=== PATIENT | female | born 1965 | race Caucasian/White ===

== ENCOUNTER 2020-01-20 14:23 | Emergency (ER) | payer MEDICAID ==
[~2020-01-20] VITALS: Ht 160 cm; Wt 101.4 kg
[2020-01-20 14:25] VITALS: BP 134/85
[2020-01-20] MEDS ORDERED: CEPH250T PO (15:18)
== END 2020-01-20 15:24 | disposition home or self-care (01) ==
LOC: ER 14:24
DX: S60.424A Blister (nonthermal) of right ring finger, initial encounter (principal); L03.011 Cellulitis of right finger; Z88.0 Allergy status to penicillin; Z88.2 Allergy status to sulfonamides; Z88.1 Allergy status to other antibiotic agents; Z79.899 Other long term (current) drug therapy; X58.XXXA Exposure to other specified factors, initial encounter; Y93.89 Activity, other specified; Y92.89 Other specified places as the place of occurrence of the external cause; Y99.8 Other external cause status
CPT/HCPCS: 99284

== ENCOUNTER 2020-02-18 15:12 | Emergency (ER) | payer MEDICAID ==
[~2020-02-18] VITALS: Ht 160 cm; Wt 93.6 kg
[2020-02-18 16:02] LABS: BASOPHILS # (AUTO) 0.1 X10'3 (0-0.2); BASOPHILS % (AUTO) 0.6 % (0-1); EOSINOPHILS # (AUTO) 0.1 X10'3 (0-0.9); HEMATOCRIT 30.7 % (35.0-45.0); HEMOGLOBIN 9.5 g/dl (12.0-16.0); LYMPHOCYTES # (AUTO) 1.5 X10'3 (1.1-4.8); LYMPHOCYTES % (AUTO) 11.2 % (21-51); MEAN CORPUSCULAR HEMOGLOBIN 23.7 PG (27.0-31.0); MEAN CORPUSCULAR HGB CONC 30.9 g/dL (33.0-36.5); MEAN CORPUSCULAR VOLUME 76.8 FL (78-98); MEAN PLATELET VOLUME 7.3 FL (7.4-10.4); MONOCYTES # (AUTO) 0.6 X10'3 (0-0.9); MONOCYTES % (AUTO) 4.6 % (2-12); NEUTROPHILS # (AUTO) 11.2 X10'3 (1.8-7.7); NEUTROPHILS % (AUTO) 82.6 % (42-75); PLATELET COUNT 742 X10'3 (140-440); RED CELL DISTRIBUTION WIDTH 18.7 % (11.5-14.5); WHITE BLOOD COUNT 13.5 X10'3 (4.5-11.0)
[2020-02-18 16:24] LABS: ALANINE AMINOTRANSFERASE 11 U/L (12-78); ALBUMIN/GLOBULIN RATIO 0.5 (1.1-1.5); ALKALINE PHOSPHATASE 82 IU/L (46-116); ANION GAP 19 (8-16); ASPARTATE AMINO TRANSFERASE 19 U/L (10-37); BILIRUBIN,TOTAL 0.3 MG/DL (0.1-1.0); BLOOD UREA NITROGEN 32 MG/DL (7-18); BUN/CREATININE RATIO 26.9 (6.6-38.0); CHLORIDE 97 MMOL/L (99-107); CREATININE 1.19 MG/DL (0.40-0.90); GLUCOSE 258 MG/DL (70-104); POTASSIUM 3.8 MMOL/L (3.5-5.1); SODIUM 135 MMOL/L (135-145); TOTAL CARBON DIOXIDE 19.1 MMOL/L (24-32); TOTAL PROTEIN 9.4 G/DL (6.4-8.2); eGFR 47 ML/MIN
[2020-02-18 16:26] LABS: ANISOCYTOSIS 2+; MICROCYTOSIS 1+; PLATELET ESTIMATE INCREASED; TOTAL CELLS COUNTED 100
[2020-02-18 16:28] LABS: CALCIUM 12.2 MG/DL (8.5-10.1)
[2020-02-18] MEDS ORDERED: normal saline 1000ml 1,000 ML IV ONE (16:50)
[2020-02-18] MEDS ORDERED: ketorolac tromethamine 15mg/ml inj. IV ONE (17:10)
[2020-02-18] MEDS ORDERED: ondansetron/PF 4mg/2ml inj IV ONE (17:10)
[2020-02-18 17:33] VITALS: BP 154/69
== END 2020-02-18 18:12 | disposition home or self-care (01) ==
LOC: ER 15:12
DX: E83.52 Hypercalcemia (principal); R07.81 Pleurodynia; R11.0 Nausea; K59.00 Constipation, unspecified; Z88.0 Allergy status to penicillin; Z88.2 Allergy status to sulfonamides; Z79.2 Long term (current) use of antibiotics
CPT/HCPCS: 36415; 71045; 80053; 83880; 84484; 85007; 85025; 93005; 96361; 96374; 96375; 99285; J1885; J2405; J7030

== ENCOUNTER 2020-02-25 12:52 | Inpatient (IN) | payer MEDICAID ==
[~2020-02-25] VITALS: Ht 175.3 cm; Wt 104.5 kg
[2020-02-25 14:09] LABS: CLARITY,URINE SLIGHTLY CLOUDY (Clear); COLOR,URINE YELLOW (Yellow); GLUCOSE, URINE >=1000 mg/dl (Neg); KETONES,URINE 40 mg/dl (Neg); LEUKOCYTE ESTERASE ,URINE NEGATIVE (Neg); NITRITES, URINE NEGATIVE (Neg); OCCULT BLOOD,URINE MODERATE (Neg); PH,URINE 5.5 (4.8-8.0); PROTEIN,URINE 30 mg/dl (Neg); UROBILINOGEN,URINE 0.2 E.U/dL (0.2-1.0)
[2020-02-25 14:10] LABS: EOSINOPHILS % (AUTO) 0 % (0-6); HEMOGLOBIN 10.2 g/dl (12.0-16.0); MONOCYTES # (AUTO) 1.1 X10'3 (0-0.9); MONOCYTES % (AUTO) 7.4 % (2-12)
[2020-02-25 14:12] LABS: BASOPHILS % (AUTO) 0.3 % (0-1); LYMPHOCYTES # (AUTO) 0.4 X10'3 (1.1-4.8); LYMPHOCYTES % (AUTO) 2.6 % (21-51); MEAN CORPUSCULAR HEMOGLOBIN 23.5 PG (27.0-31.0); MEAN PLATELET VOLUME 7.7 FL (7.4-10.4); NEUTROPHILS % (AUTO) 89.7 % (42-75); PLATELET COUNT 760 X10'3 (140-440); RED BLOOD COUNT 4.36 X10'6 (4.20-5.60); WHITE BLOOD COUNT 14.5 X10'3 (4.5-11.0)
[2020-02-25 14:23] LABS: UA COLLECTION TYPE CLN CATCH MIDSTREAM
[2020-02-25 14:26] LABS: BACTERIA,URINE FEW /HPF (Neg); MUCUS STRANDS NONE SEEN /LPF (Neg); RBC,URINE 0-2 /HPF (0-2); SQUAMOUS EPITHELIAL CELL,UR MODERATE /LPF (FEW); YEAST FEW /HPF (NEGATIVE)
[2020-02-25 14:27] LABS: WBC CLUMPS,URINE FEW /HPF (NEGATIVE)
[2020-02-25 14:28] LABS: ALANINE AMINOTRANSFERASE 13 U/L (12-78); ALBUMIN 2.8 G/DL (3.4-5.0); ALBUMIN/GLOBULIN RATIO 0.5 (1.1-1.5); ALKALINE PHOSPHATASE 101 IU/L (46-116); ANION GAP 27 (8-16); ASPARTATE AMINO TRANSFERASE 9 U/L (10-37); BILIRUBIN,TOTAL 0.4 MG/DL (0.1-1.0); BLOOD UREA NITROGEN 54 MG/DL (7-18); BUN/CREATININE RATIO 27.8 (6.6-38.0); CALCIUM 11.8 MG/DL (8.5-10.1); CHLORIDE 108 MMOL/L (99-107); CREATININE 1.94 MG/DL (0.40-0.90); SODIUM 144 MMOL/L (135-145); TOTAL PROTEIN 8.9 G/DL (6.4-8.2); eGFR 27 ML/MIN
[2020-02-25 14:32] LABS: GLUCOSE 660 MG/DL (70-104); POTASSIUM 2.6 MMOL/L (3.5-5.1); TOTAL CARBON DIOXIDE 8.8 MMOL/L (24-32)
[2020-02-25 14:38] LABS: MEAN CORPUSCULAR VOLUME 75.1 FL (78-98)
[2020-02-25 14:40] LABS: MEAN CORPUSCULAR HGB CONC 32.8 g/dL (33.0-36.5)
[2020-02-25 14:41] LABS: HEMATOCRIT 32.2 % (35.0-45.0)
[2020-02-25] MEDS ORDERED: normal saline 1000ML IV soln IVB ONE (14:45)
[2020-02-25] MEDS ORDERED: insulin regular, human U-100 3ml vial - multi-dose IV ONE (14:45)
[2020-02-25] MEDS ORDERED: potassium 10mEq/100ml NS w/LIDOcaine (10mg/bag) IV SCH (14:45)
[2020-02-25 15:00] LABS: ABG BASE EXCESS -18.2 mmol/L (-2.0-2.0); ABG HCO3 7.3 mmol/L (22.0-26.0); ABG OXYGEN SATURATION 97.7 % (94-97); ABG PCO2 (T) 18.1 mmHg (32.0-45.0); ALLEN'S TEST POSITIVE; FCOHb 1.1 % (0.0-3.9); FMetHb 0.3 % (0.0-1.5); FO2Hb 96.3 % (94-97); TOTAL HEMOGLOBIN 11.2 G/dl (12.0-16.0)
[2020-02-25] MEDS ORDERED: potassium Cl 10 mEq/100mL bag IV SCH (15:03)
[2020-02-25] MEDS: Insulin Reg/NS 100units/100mL 100 ML IV PRN ×2 (15:12→16:32)
[2020-02-25] MEDS ORDERED: potassium Cl 10 mEq/100mL bag IV ONE ×2 (16:22→16:25)
[2020-02-25] MEDS ORDERED: GLIM1TAB6 PO (16:28)
[2020-02-25] MEDS ORDERED: ERTU15TA PO (16:28)
[2020-02-25] MEDS ORDERED: METF-900 PO (16:28)
[2020-02-25] MEDS ORDERED: DICL100T85 PO (16:28)
[2020-02-25] MEDS ORDERED: PIOG30TA71 PO (16:28)
[2020-02-25] MEDS ORDERED: TOLT2TAB2 PO (16:28)
[2020-02-25] MEDS ORDERED: sodium bicarbonate (8.4%) inj. 100 MEQ in dextrose 5% water 500ml 500 ML IV PRN (16:29)
[2020-02-25] MEDS ORDERED: potassium CL 20mEq in D5-1/2NS 1,000 ML IV PRN (16:29)
[2020-02-25] MEDS ORDERED: sodium bicarbonate (8.4%) inj. 50 MEQ in dextrose 5% water 500ml 250 ML IV PRN (16:29)
[2020-02-25] MEDS ORDERED: magnesium 2GM in 50ml NS 50 ML IV PRN (16:30)
[2020-02-25] MEDS ORDERED: magnesium Cl slow-release 64mg tablet PO PRN (16:30)
[2020-02-25] MEDS ORDERED: Neutra Phos packet PO PRN (16:30)
[2020-02-25] MEDS ORDERED: magnesium 4gm in 100ml NS 100 ML IV PRN (16:30)
[2020-02-25] MEDS ORDERED: acetaminophen 325mg tablet PO PRN ×2 (16:30)
[2020-02-25] MEDS ORDERED: potassium CL 10mEq/100ml bag 100 ML IV PRN ×3 (16:30)
[2020-02-25] MEDS ORDERED: sodium phosphate inj. 15 MMOL in dextrose 5%-water 250 ML IV PRN (16:30)
[2020-02-25] MEDS ORDERED: potassium Cl 20 mEq SR tablet PO PRN ×3 (16:30)
[2020-02-25] MEDS ORDERED: morphine 2 MG/ML inj. syringe IV PRN (16:30)
[2020-02-25] MEDS ORDERED: sodium phosphate inj. 30 MMOL in dextrose 5%-water 250 ML IV PRN (16:30)
[2020-02-25] MEDS ORDERED: ondansetron/PF 4mg/2ml inj IV PRN (16:30)
[2020-02-25] MEDS ORDERED: insulin regular, human U-100 3ml vial - multi-dose IV PRN (16:30)
[2020-02-25] MEDS: Insulin Reg/NS 100units/100mL 100 ML IV SCH (16:32)
--- NOTE | 2020-02-25 16:34 | NUR ---
PT BS 398, INSULIN DRIP TITRATED TO 5UNITS/H
[2020-02-25 16:35] LABS: TROPONIN I 0.12 NG/ML (0.0-0.05)
[2020-02-25 16:48] LABS: ANISOCYTOSIS 2+; MICROCYTOSIS 1+; PLATELET ESTIMATE INCREASED; TOTAL CELLS COUNTED 100
[2020-02-25 16:52] LABS: BURR CELLS FEW; SCHISTOCYTES FEW
[2020-02-25] MEDS: normal saline 1000ml 1,000 ML IV SCH ×2 (17:03→20:29)
[2020-02-25] MEDS: pantoprazole 40 MG vial IV SCH (17:57)
[2020-02-25 19:09] LABS: ALBUMIN 2.6 G/DL (3.4-5.0); ANION GAP 19 (8-16); BLOOD UREA NITROGEN 50 MG/DL (7-18); BUN/CREATININE RATIO 32.1 (6.6-38.0); CALCIUM 11.5 MG/DL (8.5-10.1); CHLORIDE 115 MMOL/L (99-107); CREATININE 1.56 MG/DL (0.40-0.90); GLUCOSE 373 MG/DL (70-104); SODIUM 149 MMOL/L (135-145); TOTAL CARBON DIOXIDE 15.3 MMOL/L (24-32); eGFR 34 ML/MIN
[2020-02-25 19:13] LABS: POTASSIUM 2.2 MMOL/L (3.5-5.1)
[2020-02-25 19:14] LABS: PHOSPHORUS 0.7 MG/DL (2.3-4.5)
--- NOTE | 2020-02-25 19:26 | NUR ---
I REPORTED TO DR ORR , K 2.2. TN DR ORR STOP THE INSULIN AND START THE POTASSIUM PROTOCOL. INSULIN HAS BEEN STOPPED.
[2020-02-25] MEDS ORDERED: POTASSIUM CL IV ONE ×3 (19:55→23:59)
[2020-02-25] MEDS ORDERED: [UNRECOGNIZED DRUG - OTHER] IV ONE ×2 (19:55→23:59)
[2020-02-25] MEDS ORDERED: K and/or MAG REPLACEMENT MC SCH (20:00)
[2020-02-25] MEDS: K and/or MAG REPLACEMENT MC SCH (20:00)
[2020-02-25] MEDS: sodium chloride 0.45% 1,000 ML IV SCH (20:02)
[2020-02-25] MEDS ORDERED: [UNRECOGNIZED DRUG - OTHER] IV ONE (20:10)
--- NOTE | 2020-02-25 20:25 | NUR ---
received report from [facility], pt received a total of 2.5L NS for rehydration, ER MD started pt on 7 units/hr of insulin with 2 K riders with a starting K of 2.6, pt K then dropped to 2.2 before insulin was stopped. pt will arrive to floor with no fluids running and in need of K replacement. will follow protocol for rehydration and K replacemen when pt arrives to the floor.
[2020-02-25] MEDS: heparin, porcine 5000 units/ml vial SQ SCH (20:28)
--- NOTE | 2020-02-25 20:35 | NUR ---
pt arrived to the floor with all belongings, pt is very tired/weak with stable VS, pt orriented to floor as able to. pt transfered to bed and tele attached.
[2020-02-25 20:40] VITALS: BP 140/84
[2020-02-25] MEDS ORDERED: temazepam 15mg capsule PO PRN (21:00)
[2020-02-25 22:00] VITALS: BP 151/81
[2020-02-26] MEDS: sodium chloride 0.45% 1,000 ML IV SCH ×5 (00:06→15:31)
[2020-02-26] MEDS ORDERED: [UNRECOGNIZED DRUG - OTHER] IV ONE ×2 (00:10→21:55)
[2020-02-26] MEDS ORDERED: POTASSIUM CL IV ONE ×2 (00:10→21:55)
[2020-02-26] MEDS: normal saline 1000ml 1,000 ML IV SCH ×5 (00:29→16:29)
[2020-02-26 02:00] VITALS: BP 141/75
--- NOTE | 2020-02-26 03:29 | NUR ---
unable to DART pt at this time, pt is too tired to answer questions.
[2020-02-26 05:50] LABS: BASOPHILS # (AUTO) 0.1 X10'3 (0-0.2); BASOPHILS % (AUTO) 0.5 % (0-1); EOSINOPHILS % (AUTO) 0.2 % (0-6); HEMATOCRIT 30.1 % (35.0-45.0); HEMOGLOBIN 9.3 g/dl (12.0-16.0); LYMPHOCYTES # (AUTO) 0.7 X10'3 (1.1-4.8); LYMPHOCYTES % (AUTO) 5.6 % (21-51); MEAN CORPUSCULAR HEMOGLOBIN 23.7 PG (27.0-31.0); MEAN CORPUSCULAR HGB CONC 30.8 g/dL (33.0-36.5); MEAN CORPUSCULAR VOLUME 76.9 FL (78-98); MEAN PLATELET VOLUME 7.5 FL (7.4-10.4); MONOCYTES # (AUTO) 0.7 X10'3 (0-0.9); MONOCYTES % (AUTO) 5.3 % (2-12); NEUTROPHILS # (AUTO) 11.7 X10'3 (1.8-7.7); NEUTROPHILS % (AUTO) 88.4 % (42-75); PLATELET COUNT 593 X10'3 (140-440); RED BLOOD COUNT 3.92 X10'6 (4.20-5.60); RED CELL DISTRIBUTION WIDTH 18.5 % (11.5-14.5); WHITE BLOOD COUNT 13.2 X10'3 (4.5-11.0)
--- NOTE | 2020-02-26 06:02 | NUR ---
Problems reprioritized. Patient report given, questions answered & plan of care reviewed with Jocelyn Henley RN.
--- NOTE | 2020-02-26 06:10 | NUR ---
Patient in room PCU 3016. I have received report from OSMAN Valentin and had the opportunity to ask questions and assume patient care. Patient asleep in bed, hourly blood sugar checked, 1/2NS running at 250mL/hr, and in no acute distress.
[2020-02-26 06:23] LABS: ALANINE AMINOTRANSFERASE 12 U/L (12-78); ALBUMIN 2.4 G/DL (3.4-5.0); ALBUMIN/GLOBULIN RATIO 0.4 (1.1-1.5); ALKALINE PHOSPHATASE 81 IU/L (46-116); ANION GAP 19 (8-16); ASPARTATE AMINO TRANSFERASE 10 U/L (10-37); BILIRUBIN,TOTAL 0.3 MG/DL (0.1-1.0); BLOOD UREA NITROGEN 41 MG/DL (7-18); BUN/CREATININE RATIO 33.6 (6.6-38.0); CALCIUM 10.8 MG/DL (8.5-10.1); CHLORIDE 118 MMOL/L (99-107); CREATININE 1.22 MG/DL (0.40-0.90); GLUCOSE 280 MG/DL (70-104); MAGNESIUM 1.7 MG/DL (1.5-2.4); SODIUM 150 MMOL/L (135-145); TOTAL PROTEIN 8.2 G/DL (6.4-8.2); eGFR 46 ML/MIN
[2020-02-26 06:29] LABS: PHOSPHORUS 1.1 MG/DL (2.3-4.5); POTASSIUM 2.8 MMOL/L (3.5-5.1); TOTAL CARBON DIOXIDE 13.1 MMOL/L (24-32)
--- NOTE | 2020-02-26 06:31 | NUR ---
Paged Dr. Mims regarding critical lab values. PAGER ID: [phone] MESSAGE: [id number]. Jacy Helm. Critical lab values K 2.8, CO2 13.1, and phos 1.1. Thank you. Jocelyn BREWER x [phone]
[2020-02-26 07:00] VITALS: BP 138/72
[2020-02-26] MEDS ORDERED: sodium phosphate inj. 15 MMOL in dextrose 5%-water 250 ML IV PRN (07:00)
[2020-02-26] MEDS: pantoprazole 40 MG vial IV SCH (07:20)
[2020-02-26] MEDS: potassium CL 10mEq/100ml bag 100 ML IV PRN ×7 (07:21→17:11)
[2020-02-26] MEDS: heparin, porcine 5000 units/ml vial SQ SCH ×2 (07:44→19:35)
[2020-02-26] MEDS: sodium phosphate inj. 30 MMOL in dextrose 5%-water 250 ML IV PRN (07:45)
[2020-02-26] MEDS: K and/or MAG REPLACEMENT MC SCH ×2 (07:53→20:00)
--- NOTE | 2020-02-26 08:01 | NUR ---
Paged Dr. Solis regarding critical results and the fluids that are going. PAGER ID: [phone] MESSAGE: [id number]. Jacy Helm. Critical results of K 2.8, phos 1.1, and CO2 13.1. Insulin gtt off, 1/2NS running at 250mL/hr. Thank you. Jocelyn BREWER x [phone]
[2020-02-26] MEDS ORDERED: potassium Cl 20 mEq SR tablet PO STA (08:59)
[2020-02-26 11:00] VITALS: BP 147/77
[2020-02-26] MEDS: Insulin Reg/NS 100units/100mL 100 ML IV SCH (12:29)
[2020-02-26 12:30] LABS: ALBUMIN 2.5 G/DL (3.4-5.0); ANION GAP 20 (8-16); BLOOD UREA NITROGEN 37 MG/DL (7-18); BUN/CREATININE RATIO 30.8 (6.6-38.0); CALCIUM 10.6 MG/DL (8.5-10.1); CHLORIDE 115 MMOL/L (99-107); GLUCOSE 261 MG/DL (70-104); PHOSPHORUS 2.1 MG/DL (2.3-4.5); SODIUM 149 MMOL/L (135-145); eGFR 47 ML/MIN
[2020-02-26 12:44] LABS: POTASSIUM 2.7 MMOL/L (3.5-5.1)
[2020-02-26 12:45] LABS: TOTAL CARBON DIOXIDE 14.3 MMOL/L (24-32)
--- NOTE | 2020-02-26 12:45 | NUR ---
paged Dr. Solis regarding critical results. PAGER ID: [phone] MESSAGE: [id number]. Jacy Helm. Critical results of K 2.7, and CO2 14.3. Thank you. Jocelyn BREWER x [phone]
--- NOTE | 2020-02-26 13:19 | NUR ---
Paged Dr. Solis regarding Hgb A1C. PAGER ID: [phone] MESSAGE: [id number]. Jacy Helm. patient does not have a hgb A1C ordered. May I order one? Thank you. Jocelyn BREWER x [phone] Addendum: 02/26/20 at 1320 by Jocelyn Rios RN Dr. Solis called back and said to order.
--- NOTE | 2020-02-26 13:24 | NUR ---
Orders for Hgb A1C put in per Dr. Solis. Orders for BMP to be drawn q4 hours put in per Dr. Solis as well.
--- NOTE | 2020-02-26 14:32 | NUR ---
Patient with h/o type 2 DM admitted with elevated BG up to 594 mg/dl, admitted lethargic and non verbal. Per H&P takes actos, glimepiride, and metformin, reports decreased appetite, n/v. Admitted with DKA and uncontrolled DM. A1c is pending. Will need written DM education handout with verbal review when A1c results are obtained. Recommend: 1. advance diet as medically indicated to carb controlled 2. weight per rx Addendum: 02/26/20 at [address] Amended: Links added.
[2020-02-26 15:00] VITALS: BP 133/62
[2020-02-26 16:12] LABS: ALBUMIN 2.1 G/DL (3.4-5.0); ANION GAP 15 (8-16); BLOOD UREA NITROGEN 33 MG/DL (7-18); CALCIUM 9.9 MG/DL (8.5-10.1); CHLORIDE 115 MMOL/L (99-107); CREATININE 1.03 MG/DL (0.40-0.90); GLUCOSE 216 MG/DL (70-104); SODIUM 145 MMOL/L (135-145); TOTAL CARBON DIOXIDE 15.1 MMOL/L (24-32); eGFR 56 ML/MIN
[2020-02-26 16:14] LABS: POTASSIUM 3.3 MMOL/L (3.5-5.1)
[2020-02-26 18:00] VITALS: BP 133/68
--- NOTE | 2020-02-26 18:12 | NUR ---
Problems reprioritized. Patient report given, questions answered & plan of care reviewed with Homero RN. Patient stable at transfer of care.
--- NOTE | 2020-02-26 18:30 | NUR ---
Patient in room PCU 3016. I have received report from Jocelyn Henley RN and had the opportunity to ask questions and assume patient care.
[2020-02-26] MEDS: potassium CL 20mEq in D5-1/2NS 1,000 ML IV SCH (19:35)
[2020-02-26 21:34] LABS: ANION GAP 17 (8-16); BLOOD UREA NITROGEN 28 MG/DL (7-18); BUN/CREATININE RATIO 27.2 (6.6-38.0); CALCIUM 9.7 MG/DL (8.5-10.1); CHLORIDE 114 MMOL/L (99-107); CREATININE 1.03 MG/DL (0.40-0.90); GLUCOSE 218 MG/DL (70-104); SODIUM 146 MMOL/L (135-145); eGFR 56 ML/MIN
[2020-02-26 21:37] LABS: POTASSIUM 2.9 MMOL/L (3.5-5.1)
[2020-02-26 22:00] VITALS: BP 134/65
[2020-02-26 22:09] LABS: MAGNESIUM 1.3 MG/DL (1.5-2.4)
[2020-02-27 02:00] VITALS: BP 126/63
[2020-02-27] MEDS ORDERED: [UNRECOGNIZED DRUG - OTHER] IV ONE (03:00)
[2020-02-27] MEDS ORDERED: POTASSIUM CL IV ONE (03:00)
[2020-02-27] MEDS: potassium CL 20mEq in D5-1/2NS 1,000 ML IV SCH (05:25)
[2020-02-27 06:00] VITALS: BP 126/63
[2020-02-27 06:12] LABS: BASOPHILS # (AUTO) 0.1 X10'3 (0-0.2); BASOPHILS % (AUTO) 0.8 % (0-1); EOSINOPHILS # (AUTO) 0.1 X10'3 (0-0.9); EOSINOPHILS % (AUTO) 1.4 % (0-6); HEMATOCRIT 27.6 % (35.0-45.0); HEMOGLOBIN 8.7 g/dl (12.0-16.0); LYMPHOCYTES # (AUTO) 1.6 X10'3 (1.1-4.8); LYMPHOCYTES % (AUTO) 16.5 % (21-51); MEAN CORPUSCULAR HEMOGLOBIN 23.9 PG (27.0-31.0); MEAN CORPUSCULAR HGB CONC 31.5 g/dL (33.0-36.5); MEAN CORPUSCULAR VOLUME 75.8 FL (78-98); MEAN PLATELET VOLUME 7.3 FL (7.4-10.4); MONOCYTES # (AUTO) 0.7 X10'3 (0-0.9); MONOCYTES % (AUTO) 6.9 % (2-12); NEUTROPHILS # (AUTO) 7.1 X10'3 (1.8-7.7); NEUTROPHILS % (AUTO) 74.4 % (42-75); PLATELET COUNT 482 X10'3 (140-440); RED BLOOD COUNT 3.64 X10'6 (4.20-5.60); RED CELL DISTRIBUTION WIDTH 18.4 % (11.5-14.5); WHITE BLOOD COUNT 9.5 X10'3 (4.5-11.0)
--- NOTE | 2020-02-27 06:21 | NUR ---
Problems reprioritized. Patient report given, questions answered & plan of care reviewed with Layla BREWER.
--- NOTE | 2020-02-27 06:29 | NUR ---
Patient in room PCU 3016. I have received report from Otoniel BREWER and had the opportunity to ask questions and assume patient care.
[2020-02-27] MEDS: pantoprazole 40 MG vial IV SCH (07:32)
[2020-02-27] MEDS: heparin, porcine 5000 units/ml vial SQ SCH ×2 (07:32→19:18)
[2020-02-27 07:33] LABS: ALANINE AMINOTRANSFERASE 16 U/L (12-78); ALBUMIN/GLOBULIN RATIO 0.4 (1.1-1.5); ALKALINE PHOSPHATASE 73 IU/L (46-116); ANION GAP 15 (8-16); ASPARTATE AMINO TRANSFERASE 21 U/L (10-37); BILIRUBIN,TOTAL 0.4 MG/DL (0.1-1.0); BLOOD UREA NITROGEN 23 MG/DL (7-18); BUN/CREATININE RATIO 24.7 (6.6-38.0); CALCIUM 9.8 MG/DL (8.5-10.1); CHLORIDE 113 MMOL/L (99-107); CREATININE 0.93 MG/DL (0.40-0.90); GLUCOSE 262 MG/DL (70-104); MAGNESIUM 2.7 MG/DL (1.5-2.4); POTASSIUM 3.2 MMOL/L (3.5-5.1); SODIUM 144 MMOL/L (135-145); TOTAL CARBON DIOXIDE 15.8 MMOL/L (24-32); TOTAL PROTEIN 6.6 G/DL (6.4-8.2); eGFR 63 ML/MIN
[2020-02-27 07:36] LABS: PHOSPHORUS 0.8 MG/DL (2.3-4.5)
[2020-02-27] MEDS: potassium CL 10mEq/100ml bag 100 ML IV PRN ×4 (07:58→11:29)
[2020-02-27] MEDS: K and/or MAG REPLACEMENT MC SCH ×2 (08:00→20:00)
--- NOTE | 2020-02-27 08:27 | NUR ---
PAGER ID: [phone] MESSAGE: [phone] JACEY. [employer]+ 3.2, PHOS 0.8. WE ARE REPLACING NOW. KOJO PATRICIO
[2020-02-27] MEDS: sodium phosphate inj. 30 MMOL in dextrose 5%-water 250 ML IV PRN (08:40)
[2020-02-27 10:20] LABS: ABG BASE EXCESS -8.7 mmol/L (-2.0-2.0); ABG HCO3 15.2 mmol/L (22.0-26.0); ABG OXYGEN SATURATION 96.9 % (94-97); ABG PCO2 (T) 26.1 mmHg (32.0-45.0); ABG PO2 (T) 88.3 mmHg (75.0-100.0); ALLEN'S TEST POSITIVE; FCOHb 0.8 % (0.0-3.9); FMetHb 0.3 % (0.0-1.5); FO2Hb 95.8 % (94-97)
--- NOTE | 2020-02-27 10:24 | NUR ---
PAGER ID: [phone] MESSAGE: [id number] Jacy Helm: ABG results in CO2 is 26.1, do you want to stop dka protocols, and start hyperglycemia protocols and do blood glucose ACHS? thanks akhil [phone]
--- NOTE | 2020-02-27 10:26 | NUR ---
F/u: Patient's A1c is 13.0%. Pt documented as A/O x 2, DM education deferred at this time. Will continue to follow closely. Addendum: 02/27/20 at [address] Amended: Links added.
[2020-02-27] MEDS ORDERED: MESSAGE TO PHARMACY PO ONE (10:30)
[2020-02-27] MEDS ORDERED: dextrose ORAL solution 15 GM/59 ML bottle PO PRN ×2 (10:30)
[2020-02-27] MEDS ORDERED: glucagon, human recombinant 1mg kit SUBCUT PRN (10:30)
[2020-02-27] MEDS ORDERED: dextrose 50%-water 50ml dispensing syringe IV PRN ×2 (10:30)
--- NOTE | 2020-02-27 10:33 | NUR ---
received orders to stop insulin drip and start patient on hyperglycemia protocol, give 8 units of insulin and start pt with clear liquid cc diet, accuchecks q2h per dr. quijano.
[2020-02-27 11:00] VITALS: BP 128/67
[2020-02-27] MEDS ORDERED: insulin Lispro (HumaLOG) vial - multi-dose SQ ONE (12:00)
--- NOTE | 2020-02-27 14:17 | NUR ---
PAGER ID: [phone] MESSAGE: [id number] Jacy Helm: ANNIE Pt blood glucose is 344, pt received 8units insulin at 1200, this reading is after pt ate lunch, will check blood glucose again at 1600 and will let you know results. thanks akhil
[2020-02-27 15:00] VITALS: BP 119/68
[2020-02-27] MEDS: sodium chloride 0.45% 1,000 ML IV SCH (15:38)
[2020-02-27 16:25] LABS: PHOSPHORUS 2.1 MG/DL (2.3-4.5); POTASSIUM 3.2 MMOL/L (3.5-5.1)
[2020-02-27] MEDS: insulin Lispro (HumaLOG) vial - multi-dose SQ SCH ×2 (17:03→21:21)
[2020-02-27 18:00] VITALS: BP 129/63
--- NOTE | 2020-02-27 18:28 | NUR ---
Problems reprioritized. Patient report given, questions answered & plan of care reviewed with Homero RN.
--- NOTE | 2020-02-27 18:30 | NUR ---
Patient in room PCU 3016. I have received report from Layla BREWER and had the opportunity to ask questions and assume patient care.
[2020-02-27] MEDS: Neutra Phos packet PO PRN (19:17)
[2020-02-27] MEDS: potassium Cl 20 mEq SR tablet PO PRN ×2 (19:17→23:12)
[2020-02-27] MEDS ORDERED: insulin glargine (Lantus) pen - multi-dose SQ SCH (21:00)
[2020-02-27 22:00] VITALS: BP 130/65
[2020-02-27] MEDS: HYDROcodone/acetaminophen 5mg/325mg tablet PO PRN (23:12)
[2020-02-28] MEDS: sodium chloride 0.45% 1,000 ML IV SCH ×2 (01:48→10:51)
[2020-02-28 02:00] VITALS: BP 130/55
[2020-02-28 06:00] VITALS: BP 111/71
[2020-02-28 06:25] LABS: BASOPHILS # (AUTO) 0.1 X10'3 (0-0.2); BASOPHILS % (AUTO) 0.6 % (0-1); EOSINOPHILS # (AUTO) 0.2 X10'3 (0-0.9); HEMATOCRIT 26.7 % (35.0-45.0); HEMOGLOBIN 8.5 g/dl (12.0-16.0); LYMPHOCYTES # (AUTO) 2.5 X10'3 (1.1-4.8); LYMPHOCYTES % (AUTO) 29.1 % (21-51); MEAN CORPUSCULAR HEMOGLOBIN 23.7 PG (27.0-31.0); MEAN CORPUSCULAR HGB CONC 31.6 g/dL (33.0-36.5); MEAN CORPUSCULAR VOLUME 74.8 FL (78-98); MEAN PLATELET VOLUME 7.5 FL (7.4-10.4); MONOCYTES # (AUTO) 0.7 X10'3 (0-0.9); MONOCYTES % (AUTO) 7.7 % (2-12); NEUTROPHILS # (AUTO) 5.3 X10'3 (1.8-7.7); NEUTROPHILS % (AUTO) 60.6 % (42-75); PLATELET COUNT 427 X10'3 (140-440); RED BLOOD COUNT 3.58 X10'6 (4.20-5.60); RED CELL DISTRIBUTION WIDTH 18.4 % (11.5-14.5); WHITE BLOOD COUNT 8.7 X10'3 (4.5-11.0)
--- NOTE | 2020-02-28 06:33 | NUR ---
Problems reprioritized. Patient report given, questions answered & plan of care reviewed with Edilberto BREWER.
[2020-02-28 06:45] LABS: ALANINE AMINOTRANSFERASE 21 U/L (12-78); ALBUMIN 2.1 G/DL (3.4-5.0); ALBUMIN/GLOBULIN RATIO 0.5 (1.1-1.5); ALKALINE PHOSPHATASE 80 IU/L (46-116); ANION GAP 10 (8-16); ASPARTATE AMINO TRANSFERASE 18 U/L (10-37); BILIRUBIN,TOTAL 0.4 MG/DL (0.1-1.0); BLOOD UREA NITROGEN 13 MG/DL (7-18); BUN/CREATININE RATIO 17.8 (6.6-38.0); CALCIUM 9.5 MG/DL (8.5-10.1); CHLORIDE 108 MMOL/L (99-107); CREATININE 0.73 MG/DL (0.40-0.90); GLUCOSE 167 MG/DL (70-104); MAGNESIUM 1.7 MG/DL (1.5-2.4); SODIUM 140 MMOL/L (135-145); TOTAL CARBON DIOXIDE 22.3 MMOL/L (24-32); TOTAL PROTEIN 6.5 G/DL (6.4-8.2); eGFR 83 ML/MIN
--- NOTE | 2020-02-28 07:11 | NUR ---
Patient in room PCU 3016. I have received report from SPENCER RN and had the opportunity to ask questions and assume patient care.
[2020-02-28 07:50] LABS: TOTAL CELLS COUNTED 100
[2020-02-28 07:52] LABS: PLATELET ESTIMATE NORMAL; POLYCHROMASIA FEW
[2020-02-28] MEDS: K and/or MAG REPLACEMENT MC SCH (08:00)
[2020-02-28] MEDS: heparin, porcine 5000 units/ml vial SQ SCH (08:16)
[2020-02-28] MEDS: pantoprazole 40 MG vial IV SCH (08:16)
[2020-02-28] MEDS: insulin Lispro (HumaLOG) vial - multi-dose SQ SCH ×2 (08:35→13:39)
[2020-02-28] MEDS ORDERED: potassium Cl 20 mEq SR tablet PO STA (09:52)
[2020-02-28 11:00] VITALS: BP 123/74
[2020-02-28] MEDS: HYDROcodone/acetaminophen 5mg/325mg tablet PO PRN (13:40)
[2020-02-28 13:41] LABS: POTASSIUM 3.9 MMOL/L (3.5-5.1)
[2020-02-28 13:59] LABS: MAGNESIUM 1.5 MG/DL (1.5-2.4); PHOSPHORUS 1.5 MG/DL (2.3-4.5)
[2020-02-28] MEDS: Neutra Phos packet PO PRN (14:13)
--- NOTE | 2020-02-28 14:15 | NUR ---
Informed Dr. Solis of new lab values K 3.9 Mg 1.5, and low phos of 1.5. Informed Dr. Solis replacing with neutro-phos packet. Informed Dr. Solis that when walking with PT, HR went to 149 with only walking to bathroom, 121 at rest. MD aware. No new orders at this time.
[2020-02-28] MEDS ORDERED: INSU100V9 SQ (14:31)
[2020-02-28] MEDS ORDERED: PHOS250T2 PO (14:34)
[2020-02-28 15:00] VITALS: BP 118/72
--- NOTE | 2020-02-28 16:00 | NUR ---
Patient in room PCU 3016. I have received report from [facility] and had the opportunity to ask questions and assume patient care.
[2020-02-28] MEDS ORDERED: SYRI-641 SUBCUT (16:07)
[2020-02-28] MEDS ORDERED: MICO45CR73 VG (18:20)
== END 2020-02-28 17:22 | disposition home or self-care (01) | DRG 420 ==
LOC: ER 12:52 → ED HOLD 16:29 → PCU 3S 19:49
PROVIDERS: ADMIT Internal Medicine; ATTEND Internal Medicine
DX: E11.10 Type 2 diabetes mellitus with ketoacidosis without coma (principal); E66.01 Morbid (severe) obesity due to excess calories; E87.6 Hypokalemia; E83.39 Other disorders of phosphorus metabolism; N39.0 Urinary tract infection, site not specified; Z88.0 Allergy status to penicillin; Z88.2 Allergy status to sulfonamides; Z88.8 Allergy status to other drugs, medicaments and biological substances; Z68.34 Body mass index [BMI] 34.0-34.9, adult
CPT/HCPCS: 36415; 36600; 80048; 80053; 81001; 82140; 82803; 82948; 83036; 83605; 83735; 84100; 84132; 84484; 85007; 85018; 85025; 87040; 87081; 87088; 93005; 97110; 97116; 97161; 97530; 99285; C9113; G0378; J1644; J1815; J3475; J3480; J7030; J7060

== ENCOUNTER 2020-03-10 11:48 | Inpatient (IN) | payer MEDICAID ==
[~2020-03-10] VITALS: Ht 162.6 cm; Wt 95.5 kg
[~2020-03-10 11:48] MED LIST: ERTU15TA PO; GLIM1TAB6 PO; INSU100V9 SQ; METF-900 PO; MICO45CR73 VG; PHOS250T2 PO; SYRI-641 SUBCUT
[2020-03-10] MEDS ORDERED: ondansetron/PF 4mg/2ml inj IV ONE (12:00)
[2020-03-10] MEDS ORDERED: normal saline 1000ML IV soln IVB ONE ×2 (12:00→13:00)
[2020-03-10] MEDS ORDERED: morphine 4 MG/ML inj SYRINge IV PRN (12:00)
[2020-03-10 12:29] LABS: BASOPHILS # (AUTO) 0.1 X10'3 (0-0.2); BASOPHILS % (AUTO) 0.6 % (0-1); EOSINOPHILS % (AUTO) 0.3 % (0-6); HEMATOCRIT 34.4 % (35.0-45.0); HEMOGLOBIN 10.6 g/dl (12.0-16.0); LYMPHOCYTES # (AUTO) 0.7 X10'3 (1.1-4.8); LYMPHOCYTES % (AUTO) 5.5 % (21-51); MEAN CORPUSCULAR HEMOGLOBIN 24.6 PG (27.0-31.0); MEAN CORPUSCULAR HGB CONC 30.8 g/dL (33.0-36.5); MEAN CORPUSCULAR VOLUME 79.9 FL (78-98); MONOCYTES # (AUTO) 0.5 X10'3 (0-0.9); MONOCYTES % (AUTO) 3.9 % (2-12); NEUTROPHILS % (AUTO) 89.7 % (42-75); PLATELET COUNT 482 X10'3 (140-440); RED CELL DISTRIBUTION WIDTH 21.8 % (11.5-14.5); WHITE BLOOD COUNT 12.3 X10'3 (4.5-11.0)
[2020-03-10 12:38] LABS: D-DIMER 2.08 MG/L FEU (0-0.50)
[2020-03-10 12:54] LABS: ALANINE AMINOTRANSFERASE 10 U/L (12-78); ALBUMIN 2.8 G/DL (3.4-5.0); ALBUMIN/GLOBULIN RATIO 0.5 (1.1-1.5); ALKALINE PHOSPHATASE 100 IU/L (46-116); ANION GAP 19 (8-16); ASPARTATE AMINO TRANSFERASE 8 U/L (10-37); BILIRUBIN,TOTAL 0.4 MG/DL (0.1-1.0); BLOOD UREA NITROGEN 21 MG/DL (7-18); BUN/CREATININE RATIO 12.6 (6.6-38.0); CALCIUM 11.7 MG/DL (8.5-10.1); CHLORIDE 98 MMOL/L (99-107); CREATININE 1.67 MG/DL (0.40-0.90); SODIUM 137 MMOL/L (135-145); TOTAL CARBON DIOXIDE 20.2 MMOL/L (24-32); TOTAL PROTEIN 8.5 G/DL (6.4-8.2); eGFR 32 ML/MIN
[2020-03-10 12:58] LABS: GLUCOSE 605 MG/DL (70-104); POTASSIUM 2.3 MMOL/L (3.5-5.1)
[2020-03-10] MEDS ORDERED: potassium Cl 20 mEq SR tablet PO STA (13:00)
[2020-03-10] MEDS ORDERED: potassium Cl 10 mEq/100mL bag IV ONE (13:00)
[2020-03-10] MEDS ORDERED: insulin regular, human 10 units/0.1 ml syringe IV ONE (13:00)
[2020-03-10 13:06] LABS: PLATELET ESTIMATE INCREASED
[2020-03-10 13:07] LABS: ANISOCYTOSIS 3+; MICROCYTOSIS 1+
[2020-03-10 13:23] LABS: GLUCOSE, URINE >=1000 mg/dl (Neg); KETONES,URINE 15 mg/dl (Neg); LEUKOCYTE ESTERASE ,URINE NEGATIVE (Neg); NITRITES, URINE NEGATIVE (Neg); OCCULT BLOOD,URINE TRACE-INTACT (Neg); PROTEIN,URINE NEGATIVE (Neg); UROBILINOGEN,URINE 0.2 E.U/dL (0.2-1.0)
[2020-03-10 13:26] LABS: CLARITY,URINE SLIGHTLY CLOUDY (Clear); COLOR,URINE STRAW (Yellow); UA COLLECTION TYPE CLN CATCH MIDSTREAM
[2020-03-10 13:30] LABS: SQUAMOUS EPITHELIAL CELL,UR MANY /LPF (FEW); WBC CLUMPS,URINE MODERATE /HPF (NEGATIVE)
[2020-03-10 13:31] LABS: BACTERIA,URINE FEW /HPF (Neg)
[2020-03-10 13:33] LABS: RBC,URINE 0-2 /HPF (0-2); WBC,URINE 20-30 /HPF (0-4); YEAST MODERATE /HPF (NEGATIVE)
[2020-03-10] MEDS ORDERED: SOD250TA2 PO (13:55)
[2020-03-10] MEDS ORDERED: MICO45CR73 VG (13:55)
[2020-03-10] MEDS ORDERED: INSU100V9 SQ (13:55)
[2020-03-10] MEDS ORDERED: potassium Cl 20 mEq SR tablet PO PRN (14:10)
[2020-03-10] MEDS ORDERED: insulin regular, human U-100 3ml vial - multi-dose IV PRN (14:10)
[2020-03-10] MEDS ORDERED: ondansetron/PF 4mg/2ml inj IV PRN (14:10)
[2020-03-10] MEDS ORDERED: sodium bicarbonate (8.4%) inj. 100 MEQ in dextrose 5% water 500ml 500 ML IV PRN (14:10)
[2020-03-10] MEDS ORDERED: sodium phosphate inj. 15 MMOL in dextrose 5%-water 250 ML IV PRN (14:10)
[2020-03-10] MEDS ORDERED: potassium CL 10mEq/100ml bag 100 ML IV PRN (14:10)
[2020-03-10] MEDS ORDERED: mag hydrox/Alum hydrox/simeth 30ml oral suspension PO PRN (14:10)
[2020-03-10] MEDS: normal saline 1000ml 1,000 ML IV SCH ×4 (14:10→18:10)
[2020-03-10] MEDS ORDERED: acetaminophen 325mg tablet PO PRN (14:10)
[2020-03-10] MEDS ORDERED: sodium phosphate inj. 30 MMOL in dextrose 5%-water 250 ML IV PRN (14:10)
[2020-03-10] MEDS ORDERED: morphine 2 MG/ML inj. syringe IV PRN (14:10)
[2020-03-10] MEDS ORDERED: magnesium hydroxide 30ml (MOM) UD suspension PO PRN (14:10)
[2020-03-10] MEDS ORDERED: sodium bicarbonate (8.4%) inj. 50 MEQ in dextrose 5% water 500ml 250 ML IV PRN (14:10)
[2020-03-10 16:01] LABS: ALBUMIN 2.3 G/DL (3.4-5.0); ANION GAP 14 (8-16); BLOOD UREA NITROGEN 16 MG/DL (7-18); BUN/CREATININE RATIO 11.7 (6.6-38.0); CALCIUM 10.2 MG/DL (8.5-10.1); CHLORIDE 108 MMOL/L (99-107); CREATININE 1.37 MG/DL (0.40-0.90); GLUCOSE 307 MG/DL (70-104); PHOSPHORUS 1.3 MG/DL (2.3-4.5); SODIUM 144 MMOL/L (135-145); TOTAL CARBON DIOXIDE 22.5 MMOL/L (24-32); eGFR 40 ML/MIN
[2020-03-10] MEDS ORDERED: insulin regular, human 10 units/0.1 ml syringe IV PRN (16:01)
[2020-03-10] MEDS: Insulin Reg/NS 100units/100mL 100 ML IV SCH (16:06)
[2020-03-10 16:07] LABS: POTASSIUM 2.3 MMOL/L (3.5-5.1)
--- NOTE | 2020-03-10 17:30 | NUR ---
Notified Dr Aldana of K 2.3, no change in orders, continue protocol.
--- NOTE | 2020-03-10 17:44 | NUR ---
PAGER ID: [phone] MESSAGE: [phone] [id number] Jacy Helm: CO2 at 22.5 and aninon gap 14, so she has meet those goals for CO2 and aninon gap. Do you want to put her on clear or full liquids? OSMAN Vega Ext [phone]
[2020-03-10 18:00] VITALS: BP 164/61
--- NOTE | 2020-03-10 18:04 | NUR ---
Problems reprioritized. Patient report given, questions answered & plan of care reviewed with OSMAN Bravo.
[2020-03-10] MEDS: potassium CL 20mEq in D5-1/2NS 1,000 ML IV PRN ×2 (18:52→23:51)
[2020-03-10 19:23] LABS: ALBUMIN 2.3 G/DL (3.4-5.0); ANION GAP 14 (8-16); BLOOD UREA NITROGEN 15 MG/DL (7-18); BUN/CREATININE RATIO 12.4 (6.6-38.0); CALCIUM 10.1 MG/DL (8.5-10.1); CHLORIDE 110 MMOL/L (99-107); CREATININE 1.21 MG/DL (0.40-0.90); GLUCOSE 152 MG/DL (70-104); SODIUM 146 MMOL/L (135-145); TOTAL CARBON DIOXIDE 22.2 MMOL/L (24-32); eGFR 46 ML/MIN
[2020-03-10 19:28] LABS: POTASSIUM 2.2 MMOL/L (3.5-5.1)
[2020-03-10 19:33] LABS: PHOSPHORUS 0.5 MG/DL (2.3-4.5)
[2020-03-10] MEDS: morphine 2 MG/ML inj. syringe IV PRN (20:02)
[2020-03-10 20:03] LABS: MAGNESIUM 1.1 MG/DL (1.5-2.4)
[2020-03-10] MEDS: potassium CL 10mEq/100ml bag 100 ML IV PRN ×4 (20:21→23:29)
[2020-03-10] MEDS: K and/or MAG REPLACEMENT MC SCH (20:22)
[2020-03-10 22:00] VITALS: BP 100/50
[2020-03-10] MEDS ORDERED: magnesium Cl slow-release 64mg tablet PO PRN (22:30)
[2020-03-10] MEDS ORDERED: magnesium 4gm in 100ml NS 100 ML IV PRN (22:30)
[2020-03-10] MEDS ORDERED: magnesium 2GM in 50ml NS 50 ML IV PRN (22:30)
[2020-03-10 23:53] LABS: ALBUMIN 1.9 G/DL (3.4-5.0); ANION GAP 10 (8-16); BLOOD UREA NITROGEN 13 MG/DL (7-18); BUN/CREATININE RATIO 11.7 (6.6-38.0); CALCIUM 9.5 MG/DL (8.5-10.1); CHLORIDE 111 MMOL/L (99-107); CREATININE 1.11 MG/DL (0.40-0.90); GLUCOSE 177 MG/DL (70-104); SODIUM 145 MMOL/L (135-145); eGFR 51 ML/MIN
[2020-03-10 23:56] LABS: PHOSPHORUS 1.2 MG/DL (2.3-4.5); POTASSIUM 2.3 MMOL/L (3.5-5.1)
[2020-03-11] MEDS ORDERED: dextrose ORAL solution 15 GM/59 ML bottle PO PRN ×2 (00:30)
[2020-03-11] MEDS ORDERED: MESSAGE TO PHARMACY PO ONE (00:30)
[2020-03-11] MEDS ORDERED: glucagon, human recombinant 1mg kit SUBCUT PRN (00:30)
[2020-03-11] MEDS ORDERED: dextrose 50%-water 50ml dispensing syringe IV PRN ×2 (00:30)
[2020-03-11] MEDS: potassium CL 20mEq in D5-1/2NS 1,000 ML IV PRN (00:39)
[2020-03-11] MEDS: potassium CL 10mEq/100ml bag 100 ML IV PRN (01:54)
[2020-03-11 02:00] VITALS: BP_SYST 110
[2020-03-11] MEDS: insulin Lispro (HumaLOG) vial - multi-dose SQ SCH ×4 (03:31→19:29)
--- NOTE | 2020-03-11 06:19 | NUR ---
Orientee documentation: I have reviewed and agree with all interventions, assessments performed and documented by Yola BREWER .
--- NOTE | 2020-03-11 06:19 | NUR ---
Problems reprioritized. Patient report given, questions answered & plan of care reviewed with Usman.
--- NOTE | 2020-03-11 06:27 | NUR ---
Patient in room PCU 3026. I have received report from Jigna and had the opportunity to ask questions and assume patient care.
[2020-03-11 06:30] LABS: BASOPHILS # (AUTO) 0.1 X10'3 (0-0.2); BASOPHILS % (AUTO) 0.8 % (0-1); EOSINOPHILS # (AUTO) 0.1 X10'3 (0-0.9); EOSINOPHILS % (AUTO) 1.6 % (0-6); HEMATOCRIT 29.5 % (35.0-45.0); HEMOGLOBIN 9.3 g/dl (12.0-16.0); LYMPHOCYTES # (AUTO) 1.1 X10'3 (1.1-4.8); LYMPHOCYTES % (AUTO) 12.9 % (21-51); MEAN CORPUSCULAR HEMOGLOBIN 24.5 PG (27.0-31.0); MEAN CORPUSCULAR HGB CONC 31.4 g/dL (33.0-36.5); MEAN CORPUSCULAR VOLUME 78.2 FL (78-98); MEAN PLATELET VOLUME 7.6 FL (7.4-10.4); MONOCYTES # (AUTO) 0.6 X10'3 (0-0.9); MONOCYTES % (AUTO) 6.5 % (2-12); NEUTROPHILS # (AUTO) 6.9 X10'3 (1.8-7.7); NEUTROPHILS % (AUTO) 78.2 % (42-75); PLATELET COUNT 358 X10'3 (140-440); RED BLOOD COUNT 3.77 X10'6 (4.20-5.60); RED CELL DISTRIBUTION WIDTH 21.7 % (11.5-14.5); WHITE BLOOD COUNT 8.8 X10'3 (4.5-11.0)
[2020-03-11 06:35] LABS: ANION GAP 10 (8-16); BLOOD UREA NITROGEN 12 MG/DL (7-18); BUN/CREATININE RATIO 11.7 (6.6-38.0); CALCIUM 9.5 MG/DL (8.5-10.1); CHLORIDE 109 MMOL/L (99-107); CREATININE 1.03 MG/DL (0.40-0.90); GLUCOSE 139 MG/DL (70-104); MAGNESIUM 1.8 MG/DL (1.5-2.4); PHOSPHORUS 1.6 MG/DL (2.3-4.5); SODIUM 142 MMOL/L (135-145); eGFR 56 ML/MIN
[2020-03-11 06:38] LABS: POTASSIUM 2.6 MMOL/L (3.5-5.1)
[2020-03-11 07:00] VITALS: BP 93/56
--- NOTE | 2020-03-11 07:12 | NUR ---
Paged Dr. Aldana
--- NOTE | 2020-03-11 07:22 | NUR ---
Paged Dr. Aldana. Sarina Helm. [id number]. FY morning Potassium 2.6. Will replace per current orders. Usman [id number]
[2020-03-11] MEDS: Neutra Phos packet PO PRN ×2 (07:46→16:33)
[2020-03-11] MEDS: potassium Cl 20 mEq SR tablet PO PRN ×3 (07:47→19:27)
[2020-03-11] MEDS: K and/or MAG REPLACEMENT MC SCH ×2 (07:50→19:21)
[2020-03-11] MEDS: normal saline 1000ml 1,000 ML IV SCH ×3 (10:08→23:22)
[2020-03-11] MEDS: Insulin Reg/NS 100units/100mL 100 ML IV SCH (10:08)
[2020-03-11 11:00] VITALS: BP 96/53
[2020-03-11 15:00] VITALS: BP 99/58
--- NOTE | 2020-03-11 17:19 | NUR ---
DM consult, A1c 13% on 02/26/2020. Recent admit with DKA on 02/25/2020; was unable to provide verbal DM education at that time d/t patient d/t A/O x2; per H&P admitted again with DKA. Admitted with BG 605 mg/dl. Met at bedside and given written DM education handout with verbal review. Recommend: 1. continue carb controlled diet 2. chopped meats with gravy per request 3. weight per rx Addendum: 03/11/20 at [address] Amended: Links added.
[2020-03-11 18:00] VITALS: BP 100/61
--- NOTE | 2020-03-11 18:21 | NUR ---
Problems reprioritized. Patient report given, questions answered & plan of care reviewed with Prudence RN.
--- NOTE | 2020-03-11 18:30 | NUR ---
Patient in room PCU 3026. I have received report from GEORGES BREWER and had the opportunity to ask questions and assume patient care.
[2020-03-11] MEDS: morphine 2 MG/ML inj. syringe IV PRN (19:40)
[2020-03-11] MEDS ORDERED: insulin glargine (Lantus) pen - multi-dose SQ SCH (21:00)
[2020-03-11 22:00] VITALS: BP 103/57
[2020-03-12 02:00] VITALS: BP 93/61
[2020-03-12] MEDS: Neutra Phos packet PO PRN (02:42)
[2020-03-12] MEDS: morphine 2 MG/ML inj. syringe IV PRN ×3 (03:09→12:49)
[2020-03-12 05:38] LABS: BASOPHILS # (AUTO) 0.1 X10'3 (0-0.2); BASOPHILS % (AUTO) 0.8 % (0-1); EOSINOPHILS # (AUTO) 0.1 X10'3 (0-0.9); EOSINOPHILS % (AUTO) 1.3 % (0-6); HEMATOCRIT 25.3 % (35.0-45.0); HEMOGLOBIN 8.1 g/dl (12.0-16.0); LYMPHOCYTES # (AUTO) 1.5 X10'3 (1.1-4.8); LYMPHOCYTES % (AUTO) 24.6 % (21-51); MEAN CORPUSCULAR HGB CONC 32.2 g/dL (33.0-36.5); MEAN CORPUSCULAR VOLUME 77.5 FL (78-98); MEAN PLATELET VOLUME 7.6 FL (7.4-10.4); MONOCYTES # (AUTO) 0.4 X10'3 (0-0.9); MONOCYTES % (AUTO) 6.9 % (2-12); NEUTROPHILS % (AUTO) 66.4 % (42-75); PLATELET COUNT 300 X10'3 (140-440); RED BLOOD COUNT 3.26 X10'6 (4.20-5.60); RED CELL DISTRIBUTION WIDTH 22.1 % (11.5-14.5); WHITE BLOOD COUNT 6.1 X10'3 (4.5-11.0)
[2020-03-12 06:06] LABS: ALBUMIN 1.7 G/DL (3.4-5.0); ANION GAP 7 (8-16); BLOOD UREA NITROGEN 10 MG/DL (7-18); BUN/CREATININE RATIO 11.9 (6.6-38.0); CALCIUM 8.6 MG/DL (8.5-10.1); CHLORIDE 110 MMOL/L (99-107); CREATININE 0.84 MG/DL (0.40-0.90); GLUCOSE 194 MG/DL (70-104); MAGNESIUM 1.5 MG/DL (1.5-2.4); POTASSIUM 3.7 MMOL/L (3.5-5.1); SODIUM 141 MMOL/L (135-145); TOTAL CARBON DIOXIDE 23.7 MMOL/L (24-32); eGFR 70 ML/MIN
[2020-03-12] MEDS: Insulin Reg/NS 100units/100mL 100 ML IV SCH (06:10)
--- NOTE | 2020-03-12 06:13 | NUR ---
Problems reprioritized. Patient report given, questions answered & plan of care reviewed with GEORGES BREWER.
--- NOTE | 2020-03-12 06:13 | NUR ---
Patient in room PCU 3026. I have received report from Courtney BREWER and had the opportunity to ask questions and assume patient care.
[2020-03-12 07:00] VITALS: BP 92/54
[2020-03-12] MEDS: K and/or MAG REPLACEMENT MC SCH (08:00)
[2020-03-12] MEDS: insulin Lispro (HumaLOG) vial - multi-dose SQ SCH ×2 (08:26→12:53)
--- NOTE | 2020-03-12 10:11 | NUR ---
Paged Dr. Aldana. Sarina Helm, [id number]. PT worked with patient, the order is 50% weightbearing, Can the order be changed to weightbearing as tolerated per PT? Usman [phone]
[2020-03-12 11:00] VITALS: BP 92/66
[2020-03-12 15:00] VITALS: BP 109/62
[2020-03-12] MEDS: normal saline 1000ml 1,000 ML IV SCH (15:38)
--- NOTE | 2020-03-12 15:57 | NUR ---
Paged Dr. Solis. Baylee Chahal. [id number]. ANNIE I can not call in prescriptions because No number of Lantus pens to be given and no number of phosphorus tabs. [email or web address] Addendum: 03/12/20 at 1604 by Usman Downing RN Paged Dr. Jovan Solis.
--- NOTE | 2020-03-12 17:09 | NUR ---
patient safe for discharge per MD orders, discharge orders reviewed and questions answered, prescriptions called into patient pharmacy, home health set up for insulin education, piv and tele DC, personal belongings with patient including phone and dentures
== END 2020-03-12 16:20 | disposition home health service (06) | DRG 420 ==
LOC: ER 11:49 → ED HOLD 14:10 → PCU 3S 16:48
PROVIDERS: ADMIT Internal Medicine; ATTEND Internal Medicine
PROC: CB121ZZ Planar Nuclear Medicine Imaging of Lungs and Bronchi using Technetium 99m (Tc-99m) (ICD-10-PCS; principal; 2020-03-10)
DX: E10.10 Type 1 diabetes mellitus with ketoacidosis without coma (principal); E83.39 Other disorders of phosphorus metabolism; E86.0 Dehydration; E43 Unspecified severe protein-calorie malnutrition; Z20.828 Contact with and (suspected) exposure to other viral communicable diseases; D64.9 Anemia, unspecified; E87.6 Hypokalemia; N17.9 Acute kidney failure, unspecified; Z79.4 Long term (current) use of insulin; Z83.3 Family history of diabetes mellitus; Z68.36 Body mass index [BMI] 36.0-36.9, adult; Z88.0 Allergy status to penicillin; Z88.2 Allergy status to sulfonamides
CPT/HCPCS: 36415; 71045; 78582; 80048; 80053; 81001; 82948; 83735; 83880; 84100; 84484; 85008; 85025; 85379; 87081; 87635; 93005; 96374; 96375; 97161; 97530; 99285; A9539; A9540; G0378; J1815; J2270; J2405; J3475; J3480; J7030; J7060

== ENCOUNTER 2020-07-04 20:31 | Emergency (ER) | payer MEDICAID ==
[~2020-07-04] VITALS: Ht 162.6 cm; Wt 105.0 kg
[~2020-07-04 20:31] MED LIST changes: -ERTU15TA PO; -GLIM1TAB6 PO; -METF-900 PO; -PHOS250T2 PO; +SOD250TA2 PO; -SYRI-641 SUBCUT
[2020-07-04] MEDS ORDERED: normal saline 1000ML IV soln IVB ONE (21:20)
[2020-07-04 21:32] LABS: URINE HCG NEGATIVE (NEG)
[2020-07-04 21:48] LABS: CLARITY,URINE CLOUDY (Clear); COLOR,URINE YELLOW (Yellow); GLUCOSE, URINE NEGATIVE (Neg); KETONES,URINE TRACE mg/dl (Neg); LEUKOCYTE ESTERASE ,URINE SMALL (Neg); NITRITES, URINE NEGATIVE (Neg); OCCULT BLOOD,URINE LARGE (Neg); PH,URINE 5.5 (4.8-8.0); PROTEIN,URINE 100 mg/dl (Neg); UROBILINOGEN,URINE 0.2 E.U/dL (0.2-1.0)
[2020-07-04 21:53] LABS: UA COLLECTION TYPE CLN CATCH MIDSTREAM
[2020-07-04 21:53] LABS: BASOPHILS % (AUTO) 0.1 % (0-1); EOSINOPHILS % (AUTO) 0 % (0-6); HEMATOCRIT 26.4 % (35.0-45.0); LYMPHOCYTES # (AUTO) 0.5 X10'3 (1.1-4.8); LYMPHOCYTES % (AUTO) 4.2 % (21-51); MEAN CORPUSCULAR HEMOGLOBIN 22.3 PG (27.0-31.0); MEAN CORPUSCULAR HGB CONC 30.2 g/dL (33.0-36.5); MEAN CORPUSCULAR VOLUME 73.9 FL (78-98); MONOCYTES # (AUTO) 0.8 X10'3 (0-0.9); MONOCYTES % (AUTO) 6.2 % (2-12); NEUTROPHILS # (AUTO) 10.9 X10'3 (1.8-7.7); NEUTROPHILS % (AUTO) 89.5 % (42-75); PLATELET COUNT 236 X10'3 (140-440); RED BLOOD COUNT 3.56 X10'6 (4.20-5.60); RED CELL DISTRIBUTION WIDTH 19.7 % (11.5-14.5); WHITE BLOOD COUNT 12.2 X10'3 (4.5-11.0)
[2020-07-04 21:54] LABS: BACTERIA,URINE 3+ /HPF (Neg); SQUAMOUS EPITHELIAL CELL,UR FEW /LPF (FEW); WBC,URINE 30-50 /HPF (0-4)
[2020-07-04 22:00] LABS: PARTIAL THROMBOPLASTIN TIME 31 SECONDS (22-32)
[2020-07-04 22:13] LABS: ALANINE AMINOTRANSFERASE 16 U/L (12-78); ALBUMIN 2.7 G/DL (3.4-5.0); ALBUMIN/GLOBULIN RATIO 0.6 (1.1-1.5); ALKALINE PHOSPHATASE 101 IU/L (46-116); ANION GAP 12 (8-16); ASPARTATE AMINO TRANSFERASE 16 U/L (10-37); BILIRUBIN,TOTAL 0.4 MG/DL (0.1-1.0); BLOOD UREA NITROGEN 24 MG/DL (7-18); CALCIUM 9.1 MG/DL (8.5-10.1); CHLORIDE 106 MMOL/L (99-107); GLUCOSE 285 MG/DL (70-104); POTASSIUM 3.5 MMOL/L (3.5-5.1); SODIUM 137 MMOL/L (135-145); TOTAL CARBON DIOXIDE 19.3 MMOL/L (24-32); TOTAL PROTEIN 6.9 G/DL (6.4-8.2); eGFR 47 ML/MIN
[2020-07-04] MEDS ORDERED: morphine 10mg/ml inj. IV ONE (23:15)
[2020-07-04] MEDS ORDERED: ondansetron/PF 4mg/2ml inj IV ONE (23:15)
[2020-07-04] MEDS ORDERED: levoFLOXACIN 750MG TABLET PO ONE (23:35)
[2020-07-04] MEDS ORDERED: LEVO750T46 PO (23:35)
[2020-07-05] MEDS ORDERED: acetaminophen 325mg tablet PO ONE (01:20)
[2020-07-05 01:47] VITALS: BP 140/65
[2020-07-05] MEDS ORDERED: CEFD300C3 PO (22:41)
== END 2020-07-05 01:45 | disposition home or self-care (01) ==
LOC: ER 20:32
DX: R60.0 Localized edema (principal); N39.0 Urinary tract infection, site not specified; R50.9 Fever, unspecified; R51.9 Headache, unspecified; R06.02 Shortness of breath; Z20.828 Contact with and (suspected) exposure to other viral communicable diseases; E11.9 Type 2 diabetes mellitus without complications; Z88.0 Allergy status to penicillin; Z88.2 Allergy status to sulfonamides; Z88.1 Allergy status to other antibiotic agents; Z79.4 Long term (current) use of insulin; Z79.2 Long term (current) use of antibiotics; Z79.899 Other long term (current) drug therapy
CPT/HCPCS: 36415; 71045; 80053; 81001; 81025; 83605; 83880; 84145; 84484; 85025; 85610; 85730; 87040; 87088; 87186; 87635; 93005; 96361; 96374; 96375; 99285; J2270; J2405; J7030; 87077

== ENCOUNTER 2020-07-05 16:11 | Emergency (ER) | payer MEDICAID ==
[~2020-07-05] VITALS: Ht 167.6 cm; Wt 105.0 kg
[~2020-07-05 16:11] MED LIST changes: +LEVO750T46 PO
[2020-07-05] MEDS: normal saline 1000ML IV soln IVB ONE ×2 (18:16→22:14)
[2020-07-05 19:04] LABS: BASOPHILS % (AUTO) 0.4 % (0-1); EOSINOPHILS % (AUTO) 0.3 % (0-6); HEMATOCRIT 26.8 % (35.0-45.0); HEMOGLOBIN 8.1 g/dl (12.0-16.0); LYMPHOCYTES # (AUTO) 1.1 X10'3 (1.1-4.8); LYMPHOCYTES % (AUTO) 11.2 % (21-51); MEAN CORPUSCULAR HEMOGLOBIN 22.6 PG (27.0-31.0); MEAN CORPUSCULAR HGB CONC 30.4 g/dL (33.0-36.5); MEAN CORPUSCULAR VOLUME 74.5 FL (78-98); MEAN PLATELET VOLUME 8.3 FL (7.4-10.4); MONOCYTES # (AUTO) 0.7 X10'3 (0-0.9); MONOCYTES % (AUTO) 6.6 % (2-12); NEUTROPHILS % (AUTO) 81.5 % (42-75); PLATELET COUNT 241 X10'3 (140-440); WHITE BLOOD COUNT 9.8 X10'3 (4.5-11.0)
[2020-07-05 19:29] LABS: ALANINE AMINOTRANSFERASE 18 U/L (12-78); ALBUMIN 2.7 G/DL (3.4-5.0); ALBUMIN/GLOBULIN RATIO 0.6 (1.1-1.5); ALKALINE PHOSPHATASE 92 IU/L (46-116); ANION GAP 16 (8-16); ASPARTATE AMINO TRANSFERASE 24 U/L (10-37); BILIRUBIN,TOTAL 0.4 MG/DL (0.1-1.0); BLOOD UREA NITROGEN 23 MG/DL (7-18); BUN/CREATININE RATIO 16.2 (6.6-38.0); CALCIUM 9.7 MG/DL (8.5-10.1); CHLORIDE 104 MMOL/L (99-107); CREATININE 1.42 MG/DL (0.40-0.90); GLUCOSE 179 MG/DL (70-104); MAGNESIUM 1.1 MG/DL (1.5-2.4); POTASSIUM 3.5 MMOL/L (3.5-5.1); SODIUM 139 MMOL/L (135-145); TOTAL CARBON DIOXIDE 19.1 MMOL/L (24-32); TOTAL PROTEIN 7.4 G/DL (6.4-8.2); eGFR 38 ML/MIN
[2020-07-05] MEDS: levoFLOXACIN-Levaquin 750MG/D5 150 ML IV STA (19:49)
[2020-07-05 20:14] LABS: URINE HCG NEGATIVE (NEG)
[2020-07-05 21:37] LABS: CLARITY,URINE SLIGHTLY CLOUDY (Clear); COLOR,URINE ORANGE (Yellow); GLUCOSE, URINE NEGATIVE (Neg); KETONES,URINE TRACE mg/dl (Neg); LEUKOCYTE ESTERASE ,URINE NEGATIVE (Neg); NITRITES, URINE NEGATIVE (Neg); OCCULT BLOOD,URINE MODERATE (Neg); PH,URINE 5.5 (4.8-8.0); PROTEIN,URINE 100 mg/dl (Neg); UROBILINOGEN,URINE 0.2 E.U/dL (0.2-1.0)
[2020-07-05] MEDS: ondansetron/PF 4mg/2ml inj IV ONE (21:38)
[2020-07-05] MEDS: morphine 10mg/ml inj. IV ONE (21:39)
[2020-07-05] MEDS: acetaminophen 325mg tablet PO ONE (21:40)
[2020-07-05 21:42] LABS: UA COLLECTION TYPE CLN CATCH MIDSTREAM
[2020-07-05 21:46] LABS: BACTERIA,URINE 3+ /HPF (Neg); SQUAMOUS EPITHELIAL CELL,UR FEW /LPF (FEW); WBC,URINE 30-50 /HPF (0-4)
--- NOTE | 2020-07-05 21:54 | NUR ---
[employer]IST[employer] aware of temp, VS
[2020-07-05] MEDS ORDERED: CEFD300C3 PO (22:41)
[2020-07-05] MEDS: ketorolac trometh. 30mg/ml inj. IV ONE (23:06)
[2020-07-05 23:18] VITALS: BP 121/65
== END 2020-07-06 00:15 | disposition home or self-care (01) ==
LOC: ER 16:12
DX: N12 Tubulo-interstitial nephritis, not specified as acute or chronic (principal); E11.9 Type 2 diabetes mellitus without complications; Z88.0 Allergy status to penicillin; Z88.2 Allergy status to sulfonamides; Z88.1 Allergy status to other antibiotic agents; Z91.030 Bee allergy status; Z79.4 Long term (current) use of insulin; Z79.2 Long term (current) use of antibiotics; Z79.899 Other long term (current) drug therapy
CPT/HCPCS: 36415; 74176; 80053; 81001; 81025; 83605; 83735; 84145; 85025; 87040; 87088; 96361; 96374; 96375; 99285; J1885; J1956; J2270; J2405; J7030

== ENCOUNTER 2022-01-22 14:20 | Emergency (ER) | payer MEDICAID ==
[~2022-01-22] VITALS: Ht 162.6 cm; Wt 123.2 kg
[~2022-01-22 14:20] MED LIST changes: -LEVO750T46 PO
[2022-01-22 14:54] VITALS: BP 137/84
[2022-01-22] MEDS ORDERED: acetaminophen 325mg tablet PO ONE (15:25)
== END 2022-01-22 16:21 | disposition home or self-care (01) ==
LOC: ER 14:20
DX: S09.90XA Unspecified injury of head, initial encounter (principal); M25.562 Pain in left knee; E11.9 Type 2 diabetes mellitus without complications; Z88.0 Allergy status to penicillin; Z88.2 Allergy status to sulfonamides; Z88.1 Allergy status to other antibiotic agents; W19.XXXA Unspecified fall, initial encounter; Y93.89 Activity, other specified; Y92.89 Other specified places as the place of occurrence of the external cause; Y99.8 Other external cause status
CPT/HCPCS: 73564; 99284; A6449

== ENCOUNTER 2023-05-02 09:14 | Emergency (ER) | payer MEDICAID ==
[~2023-05-02] VITALS: Ht 162.6 cm; Wt 124.5 kg
[2023-05-02 09:27] VITALS: BP 147/79; PULSE 86; RESP 16; TEMP 97.8; O2SAT 100
== END 2023-05-02 13:58 | disposition home or self-care (01) ==
LOC: ER 09:16
DX: S93.401A Sprain of unspecified ligament of right ankle, initial encounter (principal); E11.9 Type 2 diabetes mellitus without complications; Z88.0 Allergy status to penicillin; Z88.2 Allergy status to sulfonamides; Z88.1 Allergy status to other antibiotic agents; Z91.030 Bee allergy status; Z79.4 Long term (current) use of insulin; Z79.899 Other long term (current) drug therapy; W18.39XA Other fall on same level, initial encounter; Y93.89 Activity, other specified; Y92.89 Other specified places as the place of occurrence of the external cause; Y99.8 Other external cause status
CPT/HCPCS: 73610; 99283; A6449

== ENCOUNTER 2024-02-27 15:29 | Emergency (ER) | payer MEDICAID ==
[~2024-02-27] VITALS: Ht 167.6 cm; Wt 121.4 kg
[2024-02-27 18:14] VITALS: BP 149/82; PULSE 73; RESP 15; TEMP 98; O2SAT 99
== END 2024-02-27 18:22 | disposition home or self-care (01) ==
LOC: ER 15:30
DX: M25.551 Pain in right hip (principal); M79.671 Pain in right foot; E11.9 Type 2 diabetes mellitus without complications; Z88.0 Allergy status to penicillin; Z88.2 Allergy status to sulfonamides; Z91.030 Bee allergy status; Z79.84 Long term (current) use of oral hypoglycemic drugs; Z79.899 Other long term (current) drug therapy; W19.XXXA Unspecified fall, initial encounter; Y93.89 Activity, other specified; Y92.89 Other specified places as the place of occurrence of the external cause; Y99.8 Other external cause status
CPT/HCPCS: 73502; 73630; 99284; L4360

== ENCOUNTER 2024-05-05 12:55 | Emergency (ER) | payer MEDICAID ==
[~2024-05-05] VITALS: Ht 165.1 cm; Wt 121.4 kg
[2024-05-05 13:05] VITALS: TEMP 97.9
[2024-05-05 17:10] VITALS: BP 165/98; PULSE 89; RESP 18; O2SAT 96
== END 2024-05-05 17:14 | disposition home or self-care (01) ==
LOC: ER 12:56
DX: S86.912A Strain of unspecified muscle(s) and tendon(s) at lower leg level, left leg, initial encounter (principal); G47.62 Sleep related leg cramps; E11.9 Type 2 diabetes mellitus without complications; Z88.0 Allergy status to penicillin; Z88.2 Allergy status to sulfonamides; Z91.030 Bee allergy status; Z88.1 Allergy status to other antibiotic agents; X58.XXXA Exposure to other specified factors, initial encounter; Y93.89 Activity, other specified; Y92.89 Other specified places as the place of occurrence of the external cause; Y99.8 Other external cause status
CPT/HCPCS: 93971; 99284